=== PATIENT | male | born 1955 | race Caucasian/White ===

== ENCOUNTER 2018-10-03 21:45 | Emergency (ER) | payer OTHER, SELFPAY ==
[2018-10-03 21:51] VITALS: BP 164/98; PULSE 89; RESP 18; TEMP 36.8; O2SAT 99; BMI 27.5
--- NOTE | 2018-10-03 22:39 | DI.RAD.S_ITS ---
PROCEDURE: XR CHEST 1V INDICATIONS: chest pain TECHNIQUE: One view of the chest was acquired. COMPARISON: None. FINDINGS: Surgical changes and devices: None. Lungs and pleura: No pleural effusions or pneumothorax. Lungs are clear. Mediastinum: Mediastinal contours appear normal. Heart size is normal. Bones and chest wall: No suspicious bony lesions. Overlying soft tissues appear unremarkable. IMPRESSION: No acute cardiopulmonary disease. Dictated by: Rene Alvarenga M.D. on 10/04/2018 at 7:58 Approved by: Rene Alvarenga M.D. on 10/04/2018 at 8:01
--- NOTE | 2018-10-03 22:42 | ED_ITS ---
HPI - General Adult General Chief complaint: Hypertension Stated complaint: HIGH BLOOD PRESSURE Time Seen by Provider: 10/03/18 22:09 Source: patient Mode of arrival: ambulatory Limitations: no limitations History of Present Illness HPI narrative: patient is a 63-year-old male who presents with headache and hypertension. He said he does have a history of hypertension he started having a headache today to his blood pressure then realized his blood pressure was high. He also has been having sweats and chills for the last couple of days. Decreased appetite. He says his chest hurts when he touches it mostly in the sternal area. Nonradiating. He denies productive cough no abdominal pain nausea vomiting. No painful or frequent urination. He was thrown from a horse a month ago he had some lower back pain which he says is resolved. No incontinence no numbness or tingling in his legs. Location: head and chest Radiation: non-radiation Related Data Home Medications Medication Instructions Recorded Confirmed Atorvastatin Calcium (Lipitor) 0 PO *UK DOSE/FREQUENCY #0 05/18/07 Naproxen Sodium (Naprosyn) 0 PO *UK DOSE/FREQUENCY #0 05/18/07 Oxycodone/Acetaminophen (Percocet 0 PO * UK DOSE/FREQUENCY #0 05/18/07 5-325 MG Tablet) Allergies Allergy/AdvReac Type Severity Reaction Status Date / Time No Known Drug Allergies Allergy Verified 10/03/18 21:56 Review of Systems Review of Systems All systems reviewed & are unremarkable except as noted in HPI and below Constitutional Reports chills, Reports fatigue, Denies fever(s), Reports headache(s) and Reports night sweats Eyes Denies change in vision, Denies eye discharge, Denies irritation and Denies loss of vision ENT Ears, Nose, Mouth, and Throat: Reports headache(s) Cardiovascular Reports as per HPI, Denies dyspnea and Denies dyspnea on exertion Respiratory Denies cough, Denies dyspnea, Denies dyspnea on exertion and Denies wheezing Gastrointestinal Gastrointestinal: Denies abdominal pain, Denies change in bowel habits, Denies diarrhea, Denies nausea and Denies vomiting Genitourinary Denies hematuria, Denies flank pain, Denies urinary incontinence and Denies urinary urgency Musculoskeletal Denies back pain, Denies muscle weakness, Denies numbness and Denies tingling Integumentary/Breasts Denies pruritus, Denies erythema, Denies rash and Denies wounds Neurologic Reports headache(s), Denies loss of vision, Denies numbness and Denies tingling Endocrine Reports fatigue Allergic/Immunologic Denies wheezing PFSH Medical History Hyperlipidemia (Acute) Social History Smoking Status: Never smoker Exam Initial Vital Signs Initial Vital Signs: Vital Signs Temperature 98.2 F 10/03/18 21:51 Pulse Rate 89 10/03/18 21:51 Respiratory Rate 18 10/03/18 21:51 Blood Pressure 164/98 H 10/03/18 21:51 Pulse Oximetry 99 10/03/18 21:51 GENERAL: Well-appearing, well-nourished and in no acute distress. HEENT: Head atraumatic,EOMI, pupils reactive, face symmetric, neck supple CARDIOVASCULAR: Regular rate and rhythm without murmurs, rubs or gallops. pain not reproducible with palpation RESPIRATORY: Breath sounds equal bilaterally, no wheezes rales or rhonchi. ABDOMEN: Soft, nontender. Normoactive bowel sounds all 4 quadrants. No guarding or rebound. BACK: No vertebral tenderness no step-offs no lumbar pain EXTREMITIES: Normal range of motion, no clubbing or edema. Neurovascularly intact NEUROLOGICAL: Alert and oriented x4.Normal gait and speech. Cranial nerves II through XII grossly intact. SKIN: Warm, dry, no laceration, no petechiae, no rashes or lesions. Course Orders Ordered: ED Orders 10/03/18 22:39 XR chest 1V Stat 10/03/18 22:46 B Type Natriuretic Peptide Stat Complete Blood Count AUTO DIFF Stat Comprehensive Metabolic Panel Stat Procalcitonin Stat Troponin & CK Cardiac Panel Stat Discontinued Medications Sodium Chloride (Normal Saline 0.9%) 1,000 mls @ 1,000 mls/hr IV CONT MERISSA Last Infusion: 10/04/18 00:13 Dose: 0 mls/hr Admin: 10/03/18 23:12 Dose: 1,000 mls/hr Vital Signs - 8 hr 10/03/18 21:51 10/04/18 00:00 Temperature 98.2 F Pulse Rate 89 75 Respiratory Rate 18 16 Blood Pressure 164/98 H Blood Pressure [Right Arm] 159/89 H Pulse Oximetry 99 100 Medical Decision Making Lab Data Lab results reviewed: Yes I reviewed the patient's lab results. Result diagrams: 10/03/18 22:46 10/03/18 22:46 Lab Results 10/03/18 10/03/18 10/03/18 Range/Units 22:46 22:46 22:46 WBC 6.3 (4.5-11.0) X10^3/uL RBC 4.32 L (4.5-5.9) X10^6/uL Hgb 13.6 (13.5-17.5) g/dL Hct 39.1 L (41-53) % MCV 90.5 (80-100) fL MCH 31.5 (26-34) PG MCHC 34.8 (30-36) % RDW 13.0 (11.6-14.8) % Plt Count 222 (150-400) X10^3/uL Neut % (Auto) 57.4 (50-75) % Lymph % (Auto) 31.1 (25-40) % [place] % (Auto) 8.1 (3-14) % Eos % (Auto) 2.6 (2-4) % Baso % (Auto) 0.8 (0-2) % Neut # (Auto) 3600 (2747-8715) /uL Sodium (137-145) mmol/L Potassium (3.4-5.1) mmol/L Chloride (98-107) mmol/L Carbon Dioxide (22-32) mmol/L BUN (9-20) mg/dL Creatinine (0.66-1.25) mg/dL Estimated GFR (>60) mL/min BUN/Creatinine Ratio (6-22) Glucose (80-110) mg/dL Calcium (8.4-10.2) mg/dL Total Bilirubin (0.2-1.3) mg/dL AST (17-59) IU/L ALT (21-72) IU/L Alkaline Phosphatase (38-126) U/L Total Creatine Kinase 196 H (55-170) U/L CK-MB (CK-2) 1.00 (<2.37) ng/mL CK-MB (CK-2) Rel Index 0.5 L (1.5-5.0) % Troponin I < 0.012 (0.01-0.034) ng/mL B-Natriuretic Peptide < 100.0 (<100) Total Protein (6.3-8.2) g/dL Albumin (3.5-5.0) g/dL Globulin (1.7-4.1) g/dL Albumin/Globulin Ratio (1.0-2.8) Procalcitonin < 0.05 (<0.5) ng/mL 10/03/18 Range/Units 22:46 WBC (4.5-11.0) X10^3/uL RBC (4.5-5.9) X10^6/uL Hgb (13.5-17.5) g/dL Hct (41-53) % MCV (80-100) fL MCH (26-34) PG MCHC (30-36) % RDW (11.6-14.8) % Plt Count (150-400) X10^3/uL Neut % (Auto) (50-75) % Lymph % (Auto) (25-40) % [place] % (Auto) (3-14) % Eos % (Auto) (2-4) % Baso % (Auto) (0-2) % Neut # (Auto) (5145-4217) /uL Sodium 143 (137-145) mmol/L Potassium 3.7 (3.4-5.1) mmol/L Chloride 105 (98-107) mmol/L Carbon Dioxide 25 (22-32) mmol/L BUN 20 (9-20) mg/dL Creatinine 0.90 (0.66-1.25) mg/dL Estimated GFR > 60.0 (>60) mL/min BUN/Creatinine Ratio 22.2 H (6-22) Glucose 90 (80-110) mg/dL Calcium 9.3 (8.4-10.2) mg/dL Total Bilirubin 0.4 (0.2-1.3) mg/dL AST 29 (17-59) IU/L ALT 30 (21-72) IU/L Alkaline Phosphatase 61 (38-126) U/L Total Creatine Kinase (55-170) U/L CK-MB (CK-2) (<2.37) ng/mL CK-MB (CK-2) Rel Index (1.5-5.0) % Troponin I (0.01-0.034) ng/mL B-Natriuretic Peptide (<100) Total Protein 7.3 (6.3-8.2) g/dL Albumin 4.6 (3.5-5.0) g/dL Globulin 2.7 (1.7-4.1) g/dL Albumin/Globulin Ratio 1.7 (1.0-2.8) Procalcitonin (<0.5) ng/mL Urine Dip Bedside Urine Glucose Negative Bedside Urine Bilirubin - Negative Bedside Urine Ketone - Negative Urine Specific [place] 1.015 Bedside Urine Occult Blood - Negative Bedside Urine pH 6.0 Bedside Urine Protein - Negative Bedside Urine Urobilinogen - Negative Bedside Urine Nitrite - Negative Bedside Urine Leukocytes - Negative Esterase Point of care testing: Urine Dip Bedside Urine Glucose Negative Bedside Urine Bilirubin - Negative Bedside Urine Ketone - Negative Urine Specific [place] 1.015 Bedside Urine Occult Blood - Negative Bedside Urine pH 6.0 Bedside Urine Protein - Negative Bedside Urine Urobilinogen - Negative Bedside Urine Nitrite - Negative Bedside Urine Leukocytes - Negative Esterase Imaging Data Chest x-ray: Attestation: I personally reviewed and interpreted this imaging study as follows: My impression: No acute cardiopulmonary process ECG Data Attestation: I personally reviewed and interpreted this ECG as follows: Prior ECG tracings: not available for review Interpretation: Sinus rhythm rate [address] changes no T-wave inversions no prior to compare MDM Narrative Medical decision making narrative: Patient blood work x-ray an EKG within normal limits. He does not have leukocytosis or other sign of infection. Her blood pressure has decreased without any intervention. I discussed with him he may need further cardiac evaluation such as a stress test and may need blood pressure medication adjustment. He needs to follow up with his primary. Discharge Plan Departure Patient Disposition: Home Clinical Impression: Hypertension Discharge Date/Time: 10/04/18 00:19 Interventions: ED Discharge Assessment Last Done: 10/04/18 00:18 Instructions: DI for High Blood Pressure Activity Restrictions/Additional Instructions: *You have been diagnosed with elevated blood pressure *What to do: May require further cardiac testing with her primary care doctor. Blood work and x-ray are reassuring. You may also require adjustment in medication, please discussed this with Dr. Brooks *Continue to take medications as directed *Follow up with your primary care provider in 2-3 days *Return to ER if you should have worsening headache, chest pain, shortness of breath or any new, worsening or concerning symptoms Prescriptions: No Action Oxycodone/Acetaminophen (Percocet 5-325 MG Tablet) PO * UK DOSE/FREQUENCY Qty: 0 RF: 0 Atorvastatin Calcium (Lipitor) PO * DOSE/FREQUENCY Qty: 0 RF: 0 Naproxen Sodium (Naprosyn) PO *UK DOSE/FREQUENCY Qty: 0 RF: 0 Referrals: Ciaran Meeks MD [Primary Care Provider] -
[2018-10-03 22:56] LABS: Add Manual Diff / Slide Review NO; Basophils Percent Auto 0.8 % (0-2); Eosinophils Percent Auto 2.6 % (2-4); Hematocrit 39.1 % (41-53); Hemoglobin 13.6 g/dL (13.5-17.5); Lymphocytes Percent Auto 31.1 % (25-40); Mean Corpuscular HGB Conc 34.8 % (30-36); Mean Corpuscular Hemoglobin 31.5 PG (26-34); Mean Corpuscular Volume 90.5 fL (80-100); Monocytes Percent Auto 8.1 % (3-14); Neutrophils Absolute Auto 3600 /uL (3000-5900); Neutrophils Percent Auto 57.4 % (50-75); Platelet Count 222 X10^3/uL (150-400); Red Blood Cell Count 4.32 X10^6/uL (4.5-5.9); White Blood Cell Count 6.3 X10^3/uL (4.5-11.0)
[2018-10-03 23:00] LABS: Creatine Kinase 196 U/L (55-170)
[2018-10-03 23:03] LABS: Alanine Aminotransferase 30 IU/L (21-72); Albumin 4.6 g/dL (3.5-5.0); Albumin Globulin Ratio 1.7 (1.0-2.8); Alkaline Phosphatase 61 U/L (38-126); Aspartate Aminotransferase 29 IU/L (17-59); BUN Creatinine Ratio 22.2 (6-22); Bilirubin Total 0.4 mg/dL (0.2-1.3); Blood Urea Nitrogen 20 mg/dL (9-20); Calcium 9.3 mg/dL (8.4-10.2); Carbon Dioxide 25 mmol/L (22-32); Chloride 105 mmol/L (98-107); Estimated Glomerular Filt Rate > 60.0 mL/min (>60); Globulin 2.7 g/dL (1.7-4.1); Glucose 90 mg/dL (80-110); HEMOLYSIS < 15 (0-50); Potassium 3.7 mmol/L (3.4-5.1); Sodium 143 mmol/L (137-145); Total Protein 7.3 g/dL (6.3-8.2)
[2018-10-03 23:11] LABS: B Type Natriuretic Peptide < 100.0 (<100)
[2018-10-03] MEDS: SODIUM CHLORIDE 0.9% 1,000 ML 1000 ML IV (23:12)
[2018-10-03 23:13] LABS: Troponin I < 0.012 ng/mL (0.01-0.034)
[2018-10-03 23:15] LABS: CKMB % Relative Index 0.5 % (1.5-5.0)
[2018-10-03 23:19] LABS: Procalcitonin < 0.05 ng/mL (<0.5)
[2018-10-04] VITALS: BP 159/89; PULSE 75; RESP 16; O2SAT 100
== END 2018-10-04 00:19 | disposition home or self-care (01) ==
PROVIDERS: Emergency Provider Emergency Medicine; PCP Family Medicine
DX: I10 Essential (primary) hypertension (principal)
CPT/HCPCS: 36591; 71045; 80053; 81003; 82550; 82553; 83880; 84145; 84484; 85025; 93005; 96360; 99283; 99285

== ENCOUNTER 2023-08-31 17:14 | Emergency (ER) | payer OTHER, SELFPAY ==
[2023-08-31] VITALS (7 sets, daily range): BP systolic 178–196; BP diastolic 79–99; PULSE 80–94; RESP 13–21; TEMP 36.9; O2SAT 96–99; BMI 28.7
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
--- NOTE | 2023-08-31 17:33 | DI.CT.S_ITS ---
PROCEDURE: CT CERVICAL SPINE WO CON INDICATIONS: Trauma TECHNIQUE: Noncontrast 3 mm thick sections acquired from the skull base to the T4 level. Sagittal and coronal reformats were then constructed. For radiation dose reduction, the following was used: automated exposure control, adjustment of mA and/or kV according to patient size. COMPARISON: [facility], CT, CT HEAD/BRAIN WO CON, 08/31/2023, 17:39. [facility], CT, CT CHEST ABD PEL W CON, 08/31/2023, 17:39. FINDINGS: Image quality: This examination is somewhat limited by quantum mottle artifact. Bones: No fractures or dislocations. Visualized superior ribs are intact. Moderate disc space narrowing is seen at C2-C3, with partial vertebral body fusion. There is at least moderate disc space narrowing seen at C6-C7, with associated endplate irregularity and sclerosis. Milder degenerative changes are seen elsewhere. Soft tissues: Prevertebral soft tissues are normal in thickness. No paravertebral hematomas. No apical pneumothoraces. IMPRESSION: Negative for fracture. Cervical spine degenerative changes are seen, which are worst at C2-C3 and C6-C7. Dictated by: Cezar Rodríguez M.D. on 08/31/2023 at 16:55 Approved by: Cezar Rodríguez M.D. on 08/31/2023 at 16:57
--- NOTE | 2023-08-31 17:33 | DI.CT.S_ITS ---
PROCEDURE: CT HEAD/BRAIN WO CON INDICATIONS: Trauma TECHNIQUE: Noncontrast 4.5 mm thick angled axial sections acquired from the foramen magnum to the vertex, with coronal and sagittal reformats. For radiation dose reduction, the following was used: automated exposure control, adjustment of mA and/or kV according to patient size. COMPARISON: [facility], CT, CT CERVICAL SPINE WO CON, 08/31/2023, 17:39. [facility], CT, CT CHEST ABD PEL W CON, 08/31/2023, 17:39. FINDINGS: Image quality: Mild streak artifact can be seen through the skull base. CSF spaces: Basal cisterns are patent. No extra-axial fluid collections. The ventricles are symmetric in size and shape. Brain: No intracranial bleeds or masses. There is cerebral volume loss for age, with resultant ventricular and sulcal prominence. There are periventricular and deep white matter chronic small vessel ischemic changes. There is intracranial internal carotid artery atherosclerosis. Skull and face: Calvarium and visualized facial bones appear intact, without suspicious lesions. Sinuses: Visualized sinuses and mastoids are clear. IMPRESSION: No acute intracranial hemorrhage is seen. No acute intracranial process is seen. Dictated by: Cezar Rodríguez M.D. on 08/31/2023 at 16:57 Approved by: Cezar Rodríguez M.D. on 08/31/2023 at 16:58
--- NOTE | 2023-08-31 17:33 | DI.CT.S_ITS ---
PROCEDURE: CT CHEST ABD PEL W CON INDICATIONS: Trauma TECHNIQUE: After the administration of intravenous contrast, 5 mm thick sections acquired from the lung apices to the symphysis. 2.5 mm thick coronal and sagittal reformats were acquired. Additional 7 mm thick coronal maximum intensity projection (MIP) reformats acquired through the lungs. Optional 10-minute delayed imaging may be performed from the kidneys to the bladder. For radiation dose reduction, the following was used: automated exposure control, adjustment of mA and/or kV according to patient size. COMPARISON: [facility], CT, CT HEAD/BRAIN WO CON, 08/31/2023, 17:39. [facility], CT, CT CERVICAL SPINE WO CON, 08/31/2023, 17:39. (A prior 2006 CT is not available for review at the time of this dictation. FINDINGS: Image quality: Excellent. CHEST: Lungs: No pulmonary contusions or lacerations. No acute airspace opacities. No pneumothorax or hemothorax. Central and peripheral airways appear patent and normal in caliber. Mediastinum: No mediastinal hematomas. Heart size is normal. No pericardial effusion. Thoracic aorta and pulmonary arteries demonstrate normal size and enhancement. No mediastinal or hilar adenopathy. Esophagus is normal in caliber. No hiatal hernia. Chest wall: No rib fractures. No subcutaneous emphysema. No axillary or supraclavicular adenopathy. Thyroid gland demonstrates no significant abnormality. ABDOMEN: Solid organs: No liver laceration is seen. An enlarged, fatty liver is seen. No focal suspicious liver lesions are seen. Gallbladder demonstrates a gallstone, without additional CT findings of cholecystitis. Biliary system is non-dilated. Pancreas enhances normally, without transection. Spleen is normal in size and enhancement, without lacerations. Incidental note is made of an accessory splenule along the hilum of the primary spleen. No adrenal hematomas. Both kidneys enhance normally, without hydronephrosis or lacerations. Peritoneum and bowel: No free fluid or air. Unenhanced bowel loops demonstrate normal wall thickness and caliber. A normal appendix is noted. Nodes and vessels: No retroperitoneal or mesenteric adenopathy. Aorta and inferior vena cava are normal in size and enhancement. Miscellaneous: A small to moderate hiatal hernia is incidentally noted. PELVIS: Genitourinary: Bladder wall thickness is normal. Miscellaneous: No inguinal adenopathy. Mild bilateral fat containing inguinal hernias are seen, left larger than right. Bones: Several chronic appearing mild spinal compression deformities can be seen. Remote Schmorl's nodes can be seen at the superior endplates of T11 and L1. Focal L4-L5 degenerative change is seen. Pelvic ring and hip joints appear intact. No vertebral compression fractures. IMPRESSION: No acute posttraumatic abnormality is identified. No displaced rib fracture or pneumothorax. No sternal fracture. Additional findings: Enlarged, fatty infiltrated liver Gallstone Accessory splenule Small to moderate fat containing periumbilical hernias Several remote appearing mild compression deformities Focal L4-L5 degenerative change Normal appendix Dictated by: Cezar Rodríguez M.D. on 08/31/2023 at 17:04 Approved by: Cezar Rodríguez M.D. on 08/31/2023 at 17:09
[2023-08-31 17:40] LABS: Add Manual Diff / Slide Review NO; Basophils Absolute Auto 100 /uL (0-100); Eosinophils Absolute Auto 100 /uL (0-450); Eosinophils Percent Auto 1.8 % (2-4); Hematocrit 41.3 % (41-53); Hemoglobin 14.3 g/dL (13.5-17.5); Lymphocytes Absolute Auto 2100 /uL (1100-4500); Lymphocytes Percent Auto 27.5 % (25-40); Mean Corpuscular HGB Conc 34.6 % (30-36); Mean Corpuscular Volume 89.7 fL (80-100); Monocytes Absolute Auto 500 /uL (0-900); Monocytes Percent Auto 6.6 % (3-14); Neutrophils Absolute Auto 4700 /uL (1500-7000); Neutrophils Percent Auto 63.1 % (50-75); Platelet Count 252 X10^3/uL (150-400); Red Blood Cell Count 4.61 X10^6/uL (4.5-5.9); Red Cell Distribution Width 13.1 % (11.6-14.8); White Blood Cell Count 7.5 X10^3/uL (4.5-11.0)
[2023-08-31 17:47] LABS: INR 1.1 (0.9-1.3); Prothrombin Time 12.4 SECONDS (10.1-12.7)
[2023-08-31 17:49] LABS: Lactate (Lactic Acid) 1.6 mmol/L (0.7-2.1); PTT Partial Thromboplastin Tim 31 SECONDS (26-36)
[2023-08-31 17:50] LABS: Alanine Aminotransferase 37 IU/L (<50); Albumin 4.7 g/dL (3.5-5.0); Albumin Globulin Ratio 1.4 (1.0-2.8); Alkaline Phosphatase 56 U/L (38-126); Aspartate Aminotransferase 32 IU/L (17-59); BUN Creatinine Ratio 19.8 (6-22); Bilirubin Total 0.5 mg/dL (0.2-1.3); Blood Urea Nitrogen 21 mg/dL (9-20); Calcium 9.5 mg/dL (8.4-10.2); Carbon Dioxide 23 mmol/L (22-32); Chloride 106 mmol/L (98-107); Estimated Glomerular Filt Rate > 60 mL/min (>60); Globulin 3.3 g/dL (1.7-4.1); Glucose 114 mg/dL (80-110); HEMOLYSIS < 15 (0-50); Lipase 149 U/L (23-300); Potassium 3.7 mmol/L (3.4-5.1); Sodium 142 mmol/L (137-145)
[2023-08-31] MEDS: KETOROLAC 30 MG/ML VIAL 15 MG IV (17:56)
[2023-08-31] MEDS: OXYCODONE/APAP 5/325 PREPACK 1 BOTTLE MISC (19:13)
== END 2023-08-31 19:14 | disposition home or self-care (01) ==
PROVIDERS: Emergency Provider Emergency Medicine; PCP Family Medicine
DX: S20.211A Contusion of right front wall of thorax, initial encounter (principal); S39.012A Strain of muscle, fascia and tendon of lower back, initial encounter; S80.212A Abrasion, left knee, initial encounter; V29.99XA Rider (driver) (passenger) of other motorcycle injured in unspecified traffic accident, initial encounter
CPT/HCPCS: 36415; 70450; 71260; 72125; 74177; 80053; 83605; 83690; 85025; 85610; 85730; 86850; 86900; 86901; 96374; 99285; 99291; 99292; G0390; J1885; Q9967

== ENCOUNTER 2023-10-06 10:48 | Outpatient (RCR) | payer OTHER, SELFPAY ==
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
== END 2024-07-27 13:58 | disposition home or self-care (01) ==
LOC: PHYS 10:48
PROVIDERS: Family Provider Family Medicine; PCP Family Medicine; Referring Provider Family Medicine; Visit Provider Family Medicine
DX: S06.0X0D Concussion without loss of consciousness, subsequent encounter (principal); V29.99XD Rider (driver) (passenger) of other motorcycle injured in unspecified traffic accident, subsequent encounter
CPT/HCPCS: 97110; 97161; 97535

== ENCOUNTER → 2024-04-08 16:19 | Outpatient (CLI) | payer OTHER, SELFPAY ==
--- NOTE | 2024-04-08 16:21 | DI.MRI.S_ITS ---
PROCEDURE: MR LUMBAR SPINE WO CON INDICATIONS: CERVICAL FACET JOINT PAIN LUMBAR FACET ARTHROPATHY TECHNIQUE: Noncontrast sagittal T1 spin echo and T2 fast echo, sagittal STIR, and T2 fast spin echo through the lumbar spine. In cases with scoliosis, additional coronal T2 fast spin echo may be performed. COMPARISON: None. FINDINGS: Image quality: Excellent. Alignment and Curvature: There is traced. Bone Marrow: Marrow is of normal overall signal. No acute vertebral body compression fractures. Old L1 superior endplate deformity. Spinal Cord: Conus medullaris terminates at the L1 level. Visualized cord demonstrates normal signal and size. Paraspinous Soft Tissues: No paravertebral masses. Discs: [id number] multilevel disc desiccation most severe at L4-5. T12-L1: Minimal disc bulge without spinal stenosis or foraminal narrowing. L1-L2: Minimal disc bulge without spinal stenosis or foraminal narrowing. Mild facet and ligamentum flavum hypertrophy. Minimal epidural lipomatosis. L2-L3: Mild disc bulge without spinal stenosis. Facet and ligamentum flavum hypertrophy with epidural lipomatosis. No foraminal narrowing. L3-L4: Minimal disc bulge with minimal canal narrowing. Minimal bilateral foraminal narrowing. Facet and ligamentum flavum hypertrophy and epidural lipomatosis are present. L4-L5: Minimal disc bulge with small posterior central protrusion with slight indentation of the anterior thecal sac. No foraminal narrowing. Facet and ligamentum flavum hypertrophy as well as epidural lipomatosis are present. L5-S1: Mild disc bulge without spinal stenosis. Minimal left foraminal narrowing with facet and ligamentum flavum hypertrophy. IMPRESSION: Early degenerative changes demonstrating multilevel disc bulges. Minimal bilateral foraminal narrowing is present at L3-4. Dictated by: Jia Preston M.D. on 04/09/2024 at 9:01 Approved by: Jia Preston M.D. on 04/09/2024 at 10:51
--- NOTE | 2024-04-08 16:21 | DI.MRI.S_ITS ---
PROCEDURE: MR CERVICAL SPINE WO CON INDICATIONS: CERVICAL FACET JOINT PAIN LUMBAR FACET ARTHROPATHY TECHNIQUE: Noncontrast sagittal T1 spin echo and T2 fast spin echo, sagittal STIR, foraminal oblique sagittal T2 fast spin echo, and axial gradient echo or T2 fast spin echo through the cervical spine. COMPARISON: None. FINDINGS: Image quality: Excellent. Alignment and Curvature: There is trace retrolisthesis of C3 on C4, C6 on C7 Bone Marrow: Marrow demonstrates normal overall signal. Moderate reactive endplate changes are present at C6-7. Spinal Cord: Visualized spinal cord has normal size and signal. No cerebellar tonsillar herniation. Paraspinous Soft Tissues: No paravertebral masses. Prevertebral soft tissues are normal in thickness. C2-C3: Minimal disc bulge without spinal stenosis. Minimal right foraminal narrowing. C3-C4: Mild disc bulge with minimal to mild spinal stenosis. There are minimal to mild bilateral foraminal narrowing with uncovertebral hypertrophy. C4-C5: Mild disc bulge and minimal to mild spinal stenosis. Moderate bilateral foraminal narrowing, right greater than left knee. Uncovertebral hypertrophy is present. C5-C6: Minimal disc bulge without spinal stenosis. Minimal to mild right foraminal narrowing with uncovertebral hypertrophy. C6-C7: Mild disc bulge without spinal stenosis. [id number] left foraminal narrowing with uncovertebral hypertrophy. C7-T1: No disc bulge, spinal stenosis or foraminal narrowing. IMPRESSION: Multilevel disc bulges. Minimal to mild spinal stenosis C3-4, C4-5 secondary to disc bulge. Multilevel foraminal narrowing overall [id number] most notable at C4-5 secondary to uncovertebral arthropathy. Dictated by: Jia Preston M.D. on 04/09/2024 at 8:33 Approved by: Jia Preston M.D. on 04/09/2024 at 8:54
== END ==
LOC: MRI 16:20
PROVIDERS: Family Provider Family Medicine
DX: M47.816 Spondylosis without myelopathy or radiculopathy, lumbar region (principal); M51.36 Other intervertebral disc degeneration, lumbar region; M47.812 Spondylosis without myelopathy or radiculopathy, cervical region; M50.31 Other cervical disc degeneration, high cervical region; M48.02 Spinal stenosis, cervical region; M53.82 Other specified dorsopathies, cervical region; M79.18 Myalgia, other site; M50.90 Cervical disc disorder, unspecified, unspecified cervical region
CPT/HCPCS: 72141; 72148